=== PATIENT | male | born 1955 | race Caucasian/White ===

== ENCOUNTER 2019-10-28 11:03 | Outpatient (CLI) | payer OTHER, SELFPAY ==
[2019-10-28] VITALS (8 sets, daily range): BP systolic 107–126; BP diastolic 57–66; PULSE 67–74; RESP 18–20; TEMP 36.7; O2SAT 97; BMI 32.5
[2019-10-28 11:11] LABS: Microscopic, Urine URINE MICROSCOPIC (MICROSCOPIC)
--- NOTE | 2019-10-28 11:25 | XR_ITS ---
PROCEDURE: XR CHEST 2V CLINICAL HISTORY: WEAKNESS,VIRAL SYNDROME COMPARISON: No exams were available for comparison FINDINGS: The cardiomediastinal silhouette and pulmonary vascularity are within normal limits. Mera are well expanded revealing ill-defined opacities in the right perihilar region and right lower lobe suggestive of an acute pneumonic infiltrate. The right upper lung field and left lung mera are clear. There is no pleural fluid. IMPRESSION: Ill-defined right lower lobe pneumonia Dictated by: Dr. Navin Avalos MD 10/28/2019 11:[address] Navin Avalos MD in [place] 10/28/2019 11:53
[2019-10-28 11:34] LABS: Appearance,Urine CLEAR (Clear); Basophils % 0.3 % (0.1-2.0); Bilirubin,Urine Negative (Negative); Blood, Urine TRACE-I (Negative); Color,Urine YELLOW (Yellow); Eosinophils % 0.2 % (0.1-12.0); Glucose,Urine (UA) 3+ (Negative); Hematocrit 44.5 % (42.0-52.0); Hemoglobin 15.1 g/dL (14.1-18.0); Ketones,Urine 2+ (Negative); Leukocyte Esterase,Urine Negative (Negative); Lymphocytes # 0.7 K/mm3 (0.7-4.5); Mean Corpuscular Hemoglobin 29.2 pg (27.0-31.2); Mean Corpuscular Volume 85.8 fl (80-94); Mean Platelet Volume 8.1 fl (7.4-10.4); Monocytes # 0.4 K/mm3 (0.1-1.0); Monocytes % 7.3 % (1.7-9.3); Neutrophils # 3.8 K/mm3 (1.8-7.8); Neutrophils % 78.2 % (37.0-80.0); Nitrate,Urine Negative (Negative); PH,Urine 5.5 (5.0-8.5); Platelet Count 152 K/mm3 (142-424); Protein,Urine Negative (Negative); Red Blood Count 5.19 M/mm3 (4.60-6.20); Red Cell Distribution Width 13.1 % (11.5-17.5); Specific Gravity, Urine 1.025 (1.005-1.030); Urobilinogen,Urine 0.2 EU/dl (0.2); White Blood Count 4.8 K/mm3 (4.8-10.8)
[2019-10-28 11:37] LABS: Squamous Epithelial Cell,Urine Occasional #/hpf (0-5); WBC,Urine Occasional #/hpf (0-3)
[2019-10-28 11:39] LABS: Chloride 101 mmol/L (98-107); Sodium 136 mmol/L (136-145)
[2019-10-28 11:40] LABS: Potassium 3.8 mmoL/L (3.5-5.1)
[2019-10-28 11:42] LABS: Alanine Aminotransferase 43 U/L (12-78); Alkaline Phosphatase 85 U/L (38-126); Anion Gap 15.8 mEq/L (5-15); Aspartate Amino Transferase 51 U/L (17-59); Bilirubin,Total 0.9 mg/dl (0.2-1.3); Blood Urea Nitrogen 16 mg/dl (9-20); Carbon Dioxide 23 mmol/L (22.0-30.0); Estimated Glomerular Filt Rate 113 ml/min (>60); GFR (African American) 137 ML/MIN (>60)
[2019-10-28 11:43] LABS: Albumin Level 3.8 g/dl (3.5-5.0); Albumin/Globulin Ratio 1.2 (1.1-1.8); Calcium 9.3 mg/dl (8.4-10.2); Globulin 3.1 g/dL (1.3-3.2); Glucose 125 mg/dl (74-100); Total Protein,Serum 6.9 g/dl (6.3-8.2)
== END 2019-10-28 16:17 | disposition home or self-care (01) ==
LOC: LAB 11:07 → INF 11:57
PROVIDERS: PCP Internal Medicine; Visit Provider Internal Medicine
DX: R53.1 Weakness; J18.9 Pneumonia, unspecified organism; B34.9 Viral infection, unspecified; E86.0 Dehydration
CPT/HCPCS: 36415; 71046; 80053; 81001; 85025; 87070; 87205; 96360; 96361; 96367